=== PATIENT | male | born 1980 | race Two or more races ===

== ENCOUNTER 2024-10-05 07:00 | Day surgery (SDC) | payer OTHER ==
[2024-09-28 12:18] VITALS: BP 140/80
[~2024-10-05] VITALS: Ht 167.6 cm; Wt 86.2 kg
[~2024-10-05 07:00] MED LIST: BUSPIRONE; NAPROXEN; PANTOPRAZOLE SO40 M2
[2024-10-05] MEDS ORDERED: CEFAZOLIN SODIUM 1,000 MG VIAL IV ONE (12:45)
== END 2024-10-05 15:45 | disposition home or self-care (01) ==
LOC: CIR.AMB 07:00
PROVIDERS: ATTEND Surgery Surgery of the Hand
DX: M67.844 Other specified disorders of tendon, left hand (principal)